=== PATIENT | male | born 1955 | race Caucasian/White ===

== ENCOUNTER → 2016-11-11 | Day surgery (SDC) | payer OTHER ==
[~2016-11-11] VITALS: Ht 182.9 cm; Wt 115.4 kg
[~2016-11-11] MED LIST: CLARITIN10 MG PO; COZAAR50 MG PO; FLOMAX0.4 MG PO; FLONASE 50 MCG/16 GM NOSE; GLUCOPHAGE500 MG PO; HYDRODIURIL12.5 MG PO; PERCOCET 10-321 EACH PO; PRESERVISION A1 EAC2 PO; PRILOSEC20 M1 PO; SINGULAIR10 MG PO; THERAGRAN-M1 TAB PO
--- NOTE | ~2016-11-11 | HP ---
PATIENT'S NAME: SLOANE DUNN [facility] AGE: 61 Y [address] 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 HISTORY: This is a 61-year-old gentleman with a past history of calcium oxalate nephrolithiasis. He underwent a left-sided intervention over a year ago. More recently, he has been bothered by left flank pain, it feels like a stone. He does have chronic back pain, but having had both, he thinks it is the stone. With that history, he underwent a CT scan. He has some tiny nonobstructing upper tract stones on the left. I believe he also has a tiny fragment in the area of the left distal ureter. He has had ongoing left flank pain. He is planning a trip to [place]. He would like to get this taken care of before he leaves the [facility]. He presents at this time for cystoscopy, retrograde evaluation with left ureteroscopy and possible stent. PAST MEDICAL HISTORY: He is otherwise relatively healthy. He has a ydr-[id number]-ljagihikf diabetes and hypertension. He had a prior stone intervention as well as a recent left foot surgery. MEDICATIONS: 1. Losartan. 2. Hydrochlorothiazide. 3. Loratadine. 4. Montelukast. 5. Metformin. 6. Flomax. 7. Prilosec. 8. Vitamins. ALLERGIES: SHARIF INHIBITORS. REVIEW OF SYSTEMS: He has occasional blurry vision and sinus issues. He has left flank pain noted. He denies any chest pain or shortness of breath. System review is otherwise unremarkable. PATIENT'S NAME: SLOANE DUNN [facility] AGE: 61 Y [address] ROOM: [place] [address] LOCATION: [facility] ADMIT DATE: 11/11/2016 History & Physical DISCHARGE DATE: FAMILY PHYSICIAN: Holden Pham MD ATTENDING PHYSICIAN: Vladimir Kaplan FAMILY HISTORY: Noncontributory. SOCIAL HISTORY: He is and lives with his in [place]. He continues to work. He does not smoke or drink. PHYSICAL EXAMINATION: GENERAL: The patient appears his usual pleasant self. VITAL SIGNS: As recorded. He is 251 pounds. HEART: Currently regular. LUNGS: Clear. ABDOMEN: No mass or tenderness. : Will be repeated at cystoscopy. EXTREMITIES: Reveals no clubbing, cyanosis, or edema. His left foot surgery from 06/18 is doing well. IMPRESSION: Left flank pain with nephrolithiasis as outlined above. PLAN: Cystoscopy with retrogrades, left ureteroscopy, and possible stent. The patient understands plan as well as the attendant risks, benefits. He has had his questions answered and he wished to proceed. VLADIMIR KAPLAN MD [facility]/modl /[id number] CC: Holden Pham MD D: [id number] T: [id number] HISTORY & PHYSICAL
--- NOTE | ~2016-11-11 | OR ---
PATIENT'S NAME: SLOANE DUNN [facility] AGE: 61 Y [address] ROOM: [place] [address] LOCATION: [facility] ADMIT DATE: 11/11/2016 OR/Procedure Report DISCHARGE DATE: FAMILY PHYSICIAN: Holden Pham MD ATTENDING PHYSICIAN: Vladimir Kaplan SURGEON: Vladimir Kaplan MD INSULATION BOARD BACK TENDER: DATE OF PROCEDURE: 11/11/2016 PREOPERATIVE DIAGNOSES: 1. Left flank pain. 2. Calcium oxalate nephrolithiasis. POSTOPERATIVE DIAGNOSES: 1. Left flank pain. 2. Calcium oxalate nephrolithiasis. PROCEDURE: Cystoscopy and retrograde. ANESTHESIA: General. INDICATION: This is a 61-year-old gentleman with the above-noted diagnoses. He has had recent left-sided flank pain. He also has chronic back pain, but he says this feels more like his stones. He has some nonobstructing upper tract stones on the left based on his recent CT. They are too small to target or treat. There is also a questionable fragmented area of his left distal ureter. With his ongoing pain symptoms, he presents for further evaluation and intervention. We are planning on cystoscopy with retrograde evaluation and possible ureteroscopy and stent. PROCEDURE: Having obtained his informed consent, the patient was taken to the operating room. He was prepped and draped sterilely and in lithotomy position. General anesthesia was administered. A 21-Maori cystoscope was assembled and guided into the urethra. The course of the urethra was unremarkable back to prostate. He demonstrates a prostatic hypertrophy. He is on an alpha josue. Moving into the bladder, we find no tumors, stones, or foreign bodies. Bladder examination was confirmed with a 70-degree lens. Both orifices were effluxing clear urine. Preliminary survey was undertaken. Bowel gas pattern is unremarkable. Soft- tissue outlines are within normal limits. He has some significant phleboliths in the left hemipelvis. That is the area where there was a question of a ureteral stone. Contrast is instilled on the right side. The ureter is pristine and delicate PATIENT'S NAME: SLOANE DUNN [facility] AGE: 61 Y [address] ROOM: [place] [address] LOCATION: [facility] ADMIT DATE: 11/11/2016 OR/Procedure Report DISCHARGE DATE: FAMILY PHYSICIAN: Holden Pham MD ATTENDING PHYSICIAN: Vladimir Kaplan with no filling defects. The calices are finely cupped. There is no mass effect. I then injected the left side. Indeed, the calcifications we can see fluoroscopically are all outside the ureter. The catheter slides easily. There is no evidence of obstruction. I am able to slide the catheter all the way to the renal pelvis. Contrast is instilled. The collecting system is symmetric with the right. Under fluoroscopy and cystoscopy, both sides drain out completely. I see no reason for ureteroscopy or for stent placement. The bladder is drained and the case is concluded. The patient tolerated the procedure well. Blood loss was negligible. No specimens sent. The patient returned to recovery awake in stable condition. VLADIMIR KAPLAN MD [facility]/modl /[id number] CC: Holden Pham MD d: 11/11/161951 t: 11/20/16 1520, OPERATIVE SUMMARY
[2016-11-11 11:18] LABS: BASOPHIL % 0.5 %; EOSINOPHIL # 0.1 K/uL (0.0-0.5); EOSINOPHIL % 1.6 %; HEMATOCRIT 45.7 % (37.0-53.0); HEMOGLOBIN 15.7 g/dL (11.0-16.0); IMMATURE GRANULOCYTE # 0.1 K/uL (0.0-0.3); IMMATURE GRANULOCYTE % 0.7 %; LYMPHOCYTE # 2.3 K/uL (0.8-4.0); LYMPHOCYTE % 28.3 %; MCH 30.8 pg (27.0-34.0); MCHC 34.4 gm/dL (32.0-36.5); MCV 89.8 fl (83.0-98.0); MONOCYTE # 0.7 K/uL (0.0-1.0); MONOCYTE % 8.5 %; MPV 9.7 fl (9.4-12.4); NEUTROPHIL # (ANC) 4.9 K/uL (1.4-9.0); NEUTROPHIL % 60.4 %; NRBC % 0 /100WBC (0-0.00); PLATELET COUNT 233 K/uL (150-450); RBC 5.09 M/uL (3.50-5.50); RDW-CV 12.7 % (11.9-14.6); WBC 8.1 K/uL (4.0-11.0)
[2016-11-11 11:35] LABS: ALBUMIN 3.5 gm/dL (3.5-5.0); ALK PHOS 102 IU/L (33-138); ALT 24 IU/L (12-78); ANION GAP 7.8 (10.0-19.0); AST 11 IU/L (10-40); BLOOD UREA NITROGEN 11 mg/dL (6-24); CALCIUM 8.6 mg/dL (8.5-10.5); CHLORIDE 108 mMol/L (96-110); CO2 31 mMol/L (22-32); ESTIMATED GFR (MDRD EQUATION) > 60; POTASSIUM 3.8 mMol/L (3.7-5.1); SODIUM 143 mMol/L (135-145); TOTAL BILIRUBIN 0.4 mg/dL (0.0-1.5); TOTAL PROTEIN 7.1 g/dL (6.0-8.4)
== END | disposition disaster alternative care site (69) ==
LOC: GPOC 11-04 13:00 → GSDC 10:49
PROVIDERS: Urology
PROC: BT1FZZZ Fluoroscopy of Left Kidney, Ureter and Bladder (ICD-10-PCS; principal; 2016-11-11)
DX: N20.0 Calculus of kidney (principal); I10 Essential (primary) hypertension; E11.9 Type 2 diabetes mellitus without complications; Z88.8 Allergy status to other drugs, medicaments and biological substances
CPT/HCPCS: C1769; J1956; J7030